=== PATIENT | female | born 1980 | race Caucasian/White ===

== ENCOUNTER 2017-01-08 17:42 | Emergency (ER) | payer MEDICAID ==
[~2017-01-08] VITALS: Ht 160 cm; Wt 87.7 kg
[2017-01-08 17:49] VITALS: BP 193/97; PULSE 93; RESP 16; TEMP 98.7; O2SAT 99
[2017-01-08] MEDS ORDERED: CIPR0.3S RIGHT EAR (18:16)
--- NOTE | 2017-01-08 18:16 | PD ---
HPI Chief Complaint: Numbness/Tingling Time Seen by Provider: 17:55 Travel History International Travel<30 days: No Contact w/Intl Traveler<30days: No Traveled to known affect area: No History of Present Illness HPI 36-year-old female states that a couple days ago she got a C-shaped flash over her vision and developed a headache shortly afterwards she states that that went away but happened to her again and went back away. She states then a couple days ago she felt tingly to the top portion of her right head and had pain with her right ear. She states she's once every day. She states she has history of migraines but they haven't bothered her as much over the past few years. She denies ever having prior imaging. Quality of pain is pressure. Location is right sided. Severity is moderate. Pain is worse if you touch the area. She states she is currently on her menstrual cycle. PFSH Past Medical History Medical History: Denies Significant Hx Diminished Hearing: Yes (decreased hearing) Tetanus Vaccination: Unknown ?: Unknown LMP: now Past Surgical History Surgical History: No Previous Surgery Social History Tobacco Use: Yes (05/19 ppd) Substance Use: No Allergies-Medications (Allergen,Severity, Reaction): Coded Allergies: acetaminophen (Verified Allergy, Intermediate, Nausea/Vomiting, 01/08/17) hydrocodone (Verified Allergy, Intermediate, Nausea/Vomiting, 01/08/17) amoxicillin (Verified Allergy, Mild, Hives, 01/08/17) clavulanic acid (Verified Allergy, Mild, Hives, 01/08/17) Reported Meds & Prescriptions Reported Meds & Active Scripts Active Ciprodex Otic Drops (Ciprofloxacin-Dexamethasone Otic Drops) 0.3-0.1% Susp 4 Drop RIGHT EAR BID Review of Systems Except as stated in HPI: all other systems reviewed are Neg Physical Exam Narrative GENERAL: Well-nourished, well-developed patient. SKIN: Warm and dry. HEAD: Normocephalic and atraumatic. EYES: No injection or drainage. ENT: No nasal drainage noted. Mucosa pink and moist. No erythema or exudates. No uvular edema. No uvular, palatal, or tonsillar deviation. Airway patent. Right ear canal shows mild swelling and is very painful to patient, bilateral TMs clear NECK: Supple, trachea midline. CARDIOVASCULAR: Regular rate and rhythm RESPIRATORY: No increased effort. No accessory muscle use. BACK: Nontender without obvious deformity. NEUROLOGICAL: Awake and alert. Motor and sensory grossly within normal limits. Normal speech. 5 out of 5 in all 4 extremities, equal grasp bilaterally, no facial droop Data Data Last Documented VS Vital Signs Date Time Temp Pulse Resp B/P (MAP) Pulse Ox O2 Delivery O2 Flow Rate FiO2 01/08/17 18:08 20 01/08/17 17:49 98.7 93 193/97 (129) [address] Brain W/O Iv Contrast(Rout) (01/08/17 ) Blood Glucose (01/08/17 18:37) MDM Medical Decision Making Medical Screen Exam Complete: Yes Emergency Medical Condition: Yes Medical Record Reviewed: Yes (past history confirmed) Interpretation(s) Glucose is normal ct brain no acute Differential Diagnosis Mass, migraine, bleed, ear infection Narrative Course Will check CT brain given no prior imaging and give prescription for otitis externa, patient declined pain medication and states she just wants an ice pack CT brain no acute, patient requesting Accu-Chek as she used to have gestational diabetes Glucose is normal, Patient denies any new complaints, all questions answered. Patient knows that follow up is incumbent on them and to return to the emergency room immediately if new or worsening symptoms develop. Patient given strict return precautions, vitals reviewed and are normal, agrees to further workup as an outpatient. Diagnosis Primary Impression: Cephalgia Qualified Codes: R51 - Headache Additional Impressions: Otitis externa Qualified Codes: H60.501 - Unspecified acute noninfective otitis externa, right ear Right facial numbness Referrals: Patient Assistance Program call for appointment Patient Instructions: General Instructions Additional Instructions: Return as needed, follow with primary Tuesday, Tylenol as needed Med/Other Pt SpecificInfo: Prescription(s) given Scripts Ciprofloxacin-Dexamethasone Otic Drops (Ciprodex Otic Drops) 0.3-0.1% Susp 4 DROP RIGHT EAR BID for Infection, #1 BOTTLE 0 Refills Prov: Debora Rodgers MD 01/08/17 Disposition: 01 DISCHARGE HOME Condition: Stable Debora Rodgers MD Jan 08, 2017 18:16
--- NOTE | 2017-01-08 18:30 | RADRPT ---
EXAM DATE/TIME: 01/08/2017 18:19 [facility] COMPARISON: No previous studies available for comparison. INDICATIONS : Migraine with visual disturbances. RADIATION DOSE: 62.72 CTDIvol (mGy) MEDICAL HISTORY : None SURGICAL HISTORY : None. ENCOUNTER: Initial ACUITY: 1 day PAIN SCALE: 0/10 LOCATION: cranial TECHNIQUE: Multiple contiguous axial images were obtained of the head. Using automated exposure control and adj ustment of the mA and/or kV according to patient size, radiation dose was kept as low as reasonably a chievable to obtain optimal diagnostic quality images. DICOM format image data is available electro nically for review and comparison. FINDINGS: CEREBRUM: The ventricles are normal for age. No evidence of midline shift, mass lesion, hemorrhage or acute in farction. No extra-axial fluid collections are seen. POSTERIOR FOSSA: The cerebellum and brainstem are intact. The 4th ventricle is midline. The cerebellopontine angle i s unremarkable. EXTRACRANIAL: The visualized portion of the orbits is intact. SKULL: The calvaria is intact. No evidence of skull fracture. CONCLUSION: Normal examination. Whit Fernandez MD on January 08, 2017 at 18:28 Board Certified Radiologist. This report was verified electronically.
== END 2017-01-08 18:49 | disposition home or self-care (01) ==
LOC: PHED 17:42
DX: H60.501 Unspecified acute noninfective otitis externa, right ear (principal)
CPT/HCPCS: 70450; 99284